=== PATIENT | male | born 1985 | race Caucasian/White ===

== ENCOUNTER 2022-01-14 00:12 | Emergency (ER) | payer BC ==
[~2022-01-14] VITALS: Ht 180.3 cm; Wt 98.4 kg
[2022-01-14 00:27] VITALS: BP 151/94
--- NOTE | 2022-01-14 00:27 | NUR ---
36 Y/O MALE BIBS FROM HOME, C/O 04/04 LOWER BACK PAIN RAD TO LEFT LEG X1 MONTH. PT HAS BEEN SEEING A CHIROPRACTOR, WAS TOLD HE MAY HAVE A HERNIATED OR BULDGED DISC. PT REQUESTED ZPACK FOR A COLD. UNLABORED BREATHING; A/OX4, GCS-15; AMBULATORY W/O ASSISTANCE. PT SEATED IN BED WITH HOB RAISED, BED IN LOWEST SETTING, AND RAIL UP X1. DENIES HX, RX AND ALLERGIES
--- NOTE | 2022-01-14 00:34 | NUR ---
PT TAKEN TO BED 03.
--- NOTE | 2022-01-14 00:47 | NUR ---
ER MD AT BEDSIDE EXAMINING PT
[2022-01-14] MEDS ORDERED: PRED20TA5 PO (01:00)
[2022-01-14] MEDS ORDERED: TRAM50TA3 PO (01:01)
[2022-01-14] MEDS ORDERED: KETOROLAC 30 MG/ML VIAL IM ONE (01:05)
[2022-01-14 01:28] VITALS: BP 151/94
--- NOTE | 2022-01-14 01:29 | NUR ---
Patient discharged with v/s stable. Written and verbal after care instructions given and explained. Patient alert, oriented and verbalized understanding of instructions. Ambulatory with steady gait. All questions addressed prior to discharge. ID band removed. Patient advised to follow up with PMD. Rx of DELTASONE AND TRAMADOL HCL given. Patient educated on indication of medication including possible reaction and side effects. Opportunity to ask questions provided and answered. VSS, A/OX4, UNLABORED BREATHING, AMBULATORY, AND CALM DEMEANOR.
== END 2022-01-14 01:28 | disposition home or self-care (01) ==
LOC: MED 00:12
DX: M54.50 Low back pain, unspecified (principal); Z79.899 Other long term (current) drug therapy
CPT/HCPCS: 96372; 99283; J1885